=== PATIENT | female | born 1960 | race Caucasian/White ===

== ENCOUNTER 2017-07-27 15:08 | Emergency (ER) | payer BC ==
[~2017-07-27] VITALS: Ht 160 cm; Wt 70.5 kg
[~2017-07-27 15:08] MED LIST: CYCL-1 PO; IBUP-1984 PO; NAPR220T67 PO; OMEP20TA5 PO; SUMA50TA17 PO; TOPI200T16 PO
[2017-07-27] MEDS ORDERED: AMOX500C2 PO (16:18)
[2017-07-27] MEDS ORDERED: HYDR-3965 PO (16:18)
[2017-07-27] MEDS ORDERED: HYDROcodone/acetaminophen 5mg/325mg tablet PO ONE (16:20)
[2017-07-27 16:58] VITALS: BP 150/90
== END 2017-07-27 16:48 | disposition home or self-care (01) ==
LOC: ER 15:09
DX: K08.89 Other specified disorders of teeth and supporting structures (principal); F12.10 Cannabis abuse, uncomplicated; Z90.710 Acquired absence of both cervix and uterus; Z79.899 Other long term (current) drug therapy
CPT/HCPCS: 99283

== ENCOUNTER 2020-12-05 17:17 | Emergency (ER) | payer BC, MEDICAID ==
[~2020-12-05] VITALS: Ht 160 cm; Wt 77.3 kg
[2020-12-05] MEDS ORDERED: ondansetron 4mg rapidly disintigrating tab PO ONE (17:35)
--- NOTE | 2020-12-05 17:39 | NUR ---
[id number] [id number]
--- NOTE | 2020-12-05 17:43 | NUR ---
PTS MOTHER NOEL [phone]
[2020-12-05] MEDS ORDERED: normal saline 1000ML IV soln IVB ONE (20:05)
[2020-12-05] MEDS ORDERED: ondansetron/PF 4mg/2ml inj IV ONE ×2 (20:05→21:15)
[2020-12-05 20:41] LABS: WHITE BLOOD COUNT 10.5 X10'3 (4.5-11.0)
[2020-12-05 20:42] LABS: BASOPHILS # (AUTO) 0.1 X10'3 (0-0.2); BASOPHILS % (AUTO) 0.5 % (0-1); EOSINOPHILS % (AUTO) 0.2 % (0-6); HEMATOCRIT 45.4 % (35.0-45.0); HEMOGLOBIN 15.7 g/dl (12.0-16.0); LYMPHOCYTES # (AUTO) 1.6 X10'3 (1.1-4.8); LYMPHOCYTES % (AUTO) 14.9 % (21-51); MEAN CORPUSCULAR HEMOGLOBIN 32.1 PG (27.0-31.0); MEAN CORPUSCULAR HGB CONC 34.6 g/dL (33.0-36.5); MEAN CORPUSCULAR VOLUME 92.7 FL (78-98); MEAN PLATELET VOLUME 8.9 FL (7.4-10.4); MONOCYTES # (AUTO) 0.6 X10'3 (0-0.9); NEUTROPHILS # (AUTO) 8.2 X10'3 (1.8-7.7); NEUTROPHILS % (AUTO) 78.4 % (42-75); PLATELET COUNT 309 X10'3 (140-440); RED BLOOD COUNT 4.89 X10'6 (4.20-5.60); RED CELL DISTRIBUTION WIDTH 14.7 % (11.5-14.5)
[2020-12-05 20:59] LABS: ALANINE AMINOTRANSFERASE 28 U/L (12-78); ALBUMIN 4.2 G/DL (3.4-5.0); ALBUMIN/GLOBULIN RATIO 1.2 (1.1-1.5); ALKALINE PHOSPHATASE 107 IU/L (46-116); ANION GAP 13 (8-16); ASPARTATE AMINO TRANSFERASE 24 U/L (10-37); BILIRUBIN,TOTAL 0.7 MG/DL (0.1-1.0); BLOOD UREA NITROGEN 22 MG/DL (7-18); BUN/CREATININE RATIO 14.8 (6.6-38.0); CALCIUM 9.7 MG/DL (8.5-10.1); CHLORIDE 103 MMOL/L (99-107); CREATININE 1.49 MG/DL (0.40-0.90); GLUCOSE 134 MG/DL (70-104); LIPASE < 50 U/L (73-393); SODIUM 141 MMOL/L (135-145); TOTAL CARBON DIOXIDE 25.2 MMOL/L (24-32); TOTAL PROTEIN 7.8 G/DL (6.4-8.2); TROPONIN I < 0.04 NG/ML (0.0-0.05); eGFR 36 ML/MIN
[2020-12-05 21:02] LABS: POTASSIUM 2.8 MMOL/L (3.5-5.1)
[2020-12-05] MEDS ORDERED: POTASSIUM BICARB 20meq eff tab 20 MEQ TABLET.EFF PO ONE ×2 (21:05)
[2020-12-05] MEDS ORDERED: diphenhydrAMINE 50 mg/ml inj IM ONE (21:15)
[2020-12-05] MEDS ORDERED: haloperidol lactate 5mg/ml inj IM ONE (21:15)
[2020-12-05 22:48] LABS: CLARITY,URINE SLIGHTLY CLOUDY (Clear); GLUCOSE, URINE NEGATIVE (Neg); KETONES,URINE 15 mg/dl (Neg); LEUKOCYTE ESTERASE ,URINE NEGATIVE (Neg); NITRITES, URINE NEGATIVE (Neg); OCCULT BLOOD,URINE LARGE (Neg); PROTEIN,URINE 30 mg/dl (Neg); UROBILINOGEN,URINE 0.2 E.U/dL (0.2-1.0)
[2020-12-05 22:49] LABS: URINE HCG NEGATIVE (NEG)
[2020-12-05 22:52] LABS: COLOR,URINE AMBER (Yellow); UA COLLECTION TYPE CLN CATCH MIDSTREAM
[2020-12-05 22:57] LABS: WBC,URINE 0-4 /HPF (0-4)
[2020-12-05 22:58] LABS: BACTERIA,URINE 1+ /HPF (Neg); MUCUS STRANDS MODERATE /LPF (Neg); SQUAMOUS EPITHELIAL CELL,UR MANY /LPF (FEW)
[2020-12-06] MEDS ORDERED: ONDA4TAB6 PO (01:25)
[2020-12-06 02:14] VITALS: BP 138/75
== END 2020-12-06 02:27 | disposition home or self-care (01) ==
LOC: ER 17:19
DX: R11.15 Cyclical vomiting syndrome unrelated to migraine (principal); R19.7 Diarrhea, unspecified
CPT/HCPCS: 36415; 71045; 80053; 81001; 81025; 83690; 84484; 85025; 93005; 96361; 96372; 96374; 96376; 99285; J1200; J1630; J2405; J7030